=== PATIENT | female | born 1990 | race Caucasian/White ===

== ENCOUNTER 2020-07-09 10:28 | Emergency (ER) | payer SELFPAY ==
[~2020-07-09] VITALS: Ht 167.6 cm; Wt 120.2 kg
[2020-07-09 10:30] VITALS: BP 141/80
--- NOTE | 2020-07-09 10:31 | NUR ---
PT AMBULATED TO BED 8.
--- NOTE | 2020-07-09 10:32 | NUR ---
30 F c/c n/v x3 days x8 times and dizziness she descibes as "spinning" x2days that caused her to hit her right temporal on the dresser and LOC for 1min. Pt reports 10/10 sharp/stabbing headache and tinniutus in her right ear following head injury, epigastric pain. Denies hematemesis, melena, fever, loss of taste/smell, dysuria, hematuria. CMS+, smile symmertical, carpenter helper maintenance strength even. Reports 9/10 numb shoulder pain after fall. TTP right temporal and ABD throughout all quadrants. ALLX: Bees LMP: May 2020, reports irregularity is normal for her
[2020-07-09] MEDS ORDERED: NACL 0.9% 1,000 ML IV SCH (10:55)
[2020-07-09] MEDS ORDERED: FAMOTIDINE 20 MG/2 ML VIAL IVP ONE (10:55)
[2020-07-09] MEDS ORDERED: ONDANSETRON 4 MG/2 ML VIAL IVP ONE (10:55)
[2020-07-09 11:13] LABS: BASOPHILS # (AUTO) 0.1 K/uL (0.00-0.22); BASOPHILS % (AUTO) 0.7 % (0.0-2.0); EOSINOPHILS % (AUTO) 0.3 % (0.0-4.0); HEMATOCRIT 43.9 % (36-48); HEMOGLOBIN 14.9 g/dL (12.0-16.0); LYMPHOCYTES # (AUTO) 2.2 K/uL (2.5-16.5); LYMPHOCYTES % (AUTO) 24.2 % (20.5-51.1); MEAN CORPUSCULAR HEMOGLOBIN 31 pg (27-31); MEAN CORPUSCULAR HGB CONC 34 g/dL (33-37); MEAN CORPUSCULAR VOLUME 90.2 fL (80-94); MONOCYTES # (AUTO) 0.6 K/uL (0.8-1.0); MONOCYTES % (AUTO) 6.1 % (1.7-9.3); NEUTROPHILS # (AUTO) 6.3 K/uL (1.8-7.7); NEUTROPHILS % (AUTO) 68.7 % (42.2-75.2); PLATELET COUNT (AUTO) 376 K/uL (140-450); RED BLOOD CELL COUNT(AUTO) 4.87 MIL/uL (4.20-5.40); RED CELL DISTRIBUTION WIDTH 13.6 % (11.6-13.7); WHITE BLOOD COUNT (AUTO) 9.2 K/uL (4.8-10.8)
--- NOTE | 2020-07-09 11:20 | NUR ---
Pt wheeled to CT.
--- NOTE | 2020-07-09 11:24 | NUR ---
PT returned from CT
[2020-07-09 11:31] LABS: ALBUMIN 3.8 g/dL (3.4-5.0); ANION GAP 14.1 (8-16); CARBON DIOXIDE 24.8 mmol/L (21-32); CREATININE 0.8 mg/dL (0.6-1.3); POTASSIUM 3.9 mmol/L (3.5-5.1); TOTAL BILIRUBIN 0.5 mg/dL (0.0-1.0)
[2020-07-09] MEDS ORDERED: KETOROLAC 30 MG/ML VIAL IVP ONE (12:20)
[2020-07-09] MEDS ORDERED: ONDA4TAB PO (13:05)
[2020-07-09] MEDS ORDERED: ATRO1TAB PO (13:05)
[2020-07-09] MEDS ORDERED: NAPR-54 PO (13:05)
[2020-07-09 13:17] VITALS: BP 116/67
--- NOTE | 2020-07-09 13:17 | NUR ---
Patient discharged with v/s stable. Written and verbal after care instructions given and explained. Patient alert, oriented and verbalized understanding of instructions. Ambulatory with steady gait. All questions addressed prior to discharge. ID band removed. Patient advised to follow up with PMD. Rx of NAPROXEN 500MG BID PO, ZOFRAN 4MG PO Q8H PRN, AND LOMTIL 2.5-0.25MG PO TID PRN DIARRHEA given. Patient educated on indication of medication including possible reaction and side effects. Opportunity to ask questions provided and answered.
== END 2020-07-09 13:16 | disposition home or self-care (01) ==
LOC: MED 10:28
DX: S09.90XA Unspecified injury of head, initial encounter (principal); R11.2 Nausea with vomiting, unspecified; R19.7 Diarrhea, unspecified; W19.XXXA Unspecified fall, initial encounter; Y93.89 Activity, other specified; Y92.89 Other specified places as the place of occurrence of the external cause; Y99.8 Other external cause status
CPT/HCPCS: 36415; 70450; 80053; 81002; 81025; 83690; 85025; 96361; 96374; 96375; 99284; J1885; J2405; J3490; J7030